=== PATIENT | female | born 1950 | race Caucasian/White ===

== ENCOUNTER 2017-05-05 10:17 | Emergency (ER) | payer MEDICARE, MEDICAID ==
[~2017-05-05 10:17] MED LIST: AMBIEN DPS5 MG PO; AUGMENTIN875 MG PO; CATAPRES-DPS0.1 MG PO; CELEXA40 MG PO; CYANOCOBAL1000 MCG/1 IM; DULCOLAX-DPS10 MG PR; ECOTRIN81 MG PO; GABAPENTIN600 MG PO; LACTULOSE20 GM/30 M PO; LIPITOR DPS40 MG PO; MAG-OX400 MG PO; MIRALAX PACKET17 GM PO; NATURAL BALANCE15 ML OU; NEURONTIN DPS300 MG PO; OXYCODONE HCL5 M1 PO; PENNSAID112 GM TD; SIMPONI AR50 MG/4 ML IV; SPORTS CREAM85 GM TP; TRIMPEX DPS100 MG PO; VITAMIN D35000 UNI1 PO; VOLTAREN 1% GE100 GM TP; WOMAN'S LAXATIVE5 M1 PO; ZOFRAN ODT4 MG PO; ZYRTEC DPS10 MG PO; [UNRECOGNIZED DRUG - CODE] TP
--- NOTE | 2017-05-13 18:56 | ER ---
ADMIT: 05/05/2017 RM/LOC: ER [facility] MR#: [id number] [id number] [place] [address] Emergency Room Report SEX: F AGE: 66 : 1950 DATE: 05/05/2017 ADDENDUM: CHIEF COMPLAINT: Generalized weakness and not eating. HISTORY OF PRESENT ILLNESS: This is a 66-year-old female, just does not eating, just because she just says she feels a little bit nauseated, and just has no appetite. She denies having any pain. Denies any chest pain. Denies any shortness of breath. Denies any fevers, chills, or sweats. Denies any nausea, vomiting, or diarrhea. Denies really any abdominal pain, again just says that she has a little bit nauseated. PHYSICAL EXAMINATION: VITAL SIGNS: Blood pressure is 129/83; pulse is 100; respirations 16; temperature is 98.7, tympanic; and saturation of oxygen is 97% on room air. GENERAL APPEARANCE: She is in no acute distress, slightly somnolent, but alert and awake to questions. HEENT: Her pharynx is slightly dry, but no tonsillar swelling or exudate. HEART: Borderline tachycardic. LUNGS: CTA bilaterally. No wheezes, rales, or rhonchi. NEURO AND PSYCH: She is alert and oriented x4. Mood and affect normal. Cranial nerves II through XII intact. EXTREMITIES: When testing her extremities, she has equal strength on bilateral upper and lower extremities. No pronator drift. COURSE IN THE EMERGENCY ROOM: CBC, CMP, EKG, and chest x-ray were done. CMP is normal except for an albumin of 2.9, alkaline phosphatase is 151. EKG showed sinus rhythm at a rate of 98, over-read by Dr. Melendez. Urine showed 1+ protein, 4+ ketones. CBC was normal. I am discharging the patient home after a liter of fluids. She says she actually feels quite a bit better. I told her that she really needs to try to drink fluids and snack through the day. CLINICAL IMPRESSION: Dehydration secondary to her to not eat and drink. SARI Sosa / Juan Melendez MD / modl JOB #: [id number] CC: Juan Melendez MD, Attending Physician Juan Ernst MD, Family Physician
== END 2017-05-05 13:55 | disposition home or self-care (01) ==
LOC: ER 10:17
DX: E86.0 Dehydration (principal); I10 Essential (primary) hypertension; K21.9 Gastro-esophageal reflux disease without esophagitis; M06.9 Rheumatoid arthritis, unspecified; F32.9 Major depressive disorder, single episode, unspecified; M19.90 Unspecified osteoarthritis, unspecified site; Z98.890 Other specified postprocedural states; Z88.8 Allergy status to other drugs, medicaments and biological substances; Z79.82 Long term (current) use of aspirin; Z79.899 Other long term (current) drug therapy; Z79.01 Long term (current) use of anticoagulants